=== PATIENT | female | born 1995 | race African-American/Black ===

== ENCOUNTER 2017-07-24 02:36 | Emergency (ER) | payer SELFPAY ==
[~2017-07-24] VITALS: Ht 152.4 cm; Wt 61.5 kg
[2017-07-24 02:50] VITALS: Ht 152.4 cm; Wt 61.5 kg
[2017-07-24] MEDS ORDERED: DIPHTH/TET/ACEL PERTUSS (ADULT) 0.5 ML VIAL IM* ONE (04:00)
--- NOTE | 2017-07-24 04:02 | ERD ---
ER Documentation Chief Complaint Date/Time DATE: 07/24/17 TIME: 03:58 Chief Complaint left 4th toe laceration HPI A 2-year-old female complaining of laceration to left fourth toe. 4 hours ago patient had glass near fall on her toe sustained laceration. Patient does not recall last tetanus shot. Patient clean site at home and applied bandage. Denies numbness or tingling. Is able to move toes without difficulty. Denies medical problems. NKDA. Surgical history ACL repair of her left knee. Social history smokes occasionally. ROS All systems reviewed and are negative except as per history of present illness. Medications Home Meds Reported Medications [None] No Conflict Check 06/25/11 Allergies Allergies: Coded Allergies: No Known Allergies (Verified Allergy, Unknown, 06/25/11) PMhx/Soc History of Surgery: No Anesthesia Reaction: No Hx Neurological Disorder: No Hx Respiratory Disorders: No Hx Cardiac Disorders: No Hx Psychiatric Problems: No Hx Miscellaneous Medical Probl: No Hx Alcohol Use: No Hx Substance Use: No Hx Tobacco Use: No Physical Exam Vitals Vital Signs Date Time Temp Pulse Resp B/P Pulse Ox O2 Delivery O2 Flow Rate FiO2 07/24/17 02:50 97.3 77 20 111/70 100 Physical Exam GENERAL: The patient is well-appearing, well-nourished, in no acute distress CHEST: Clear to auscultation bilaterally. There are no rales, wheezes or rhonchi. HEART: Regular rate and rhythm. No murmurs, clicks, rubs or gallops. No S3 or S4. EXTREMITIES: Equal pulses bilaterally. There is no peripheral clubbing, cyanosis or edema. No focal swelling or erythema. Full range of motion. Grossly neurovascularly intact. SKIN: 2 cm flap laceration to dorsal left fourth toe. Results 24 hrs Current Medications Medications (Trade) Dose Ordered Sig/Thad Route PRN Reason Start Time Stop Time Status Last Admin Dose Admin Diphtheria/ Tetanus/Acell Pertussis (Adacel) 0.5 ml ONCE ONCE IM* 07/24/17 04:00 07/24/17 04:01 Procedures/MDM ER Course: TDap given in ED Site cleaned with NS. Dermabond applied. Patient tolerated procedure well Bandage applied over dermabond MDM: 22-year-old female complaining of laceration to left fourth toe. I have low suspicion for tendon or ligament injury. I have low suspicion for retained foreign body. I have low suspicion for vascular injury. Patient's laceration is a flap laceration and is superficial. Patient is told to follow-up with primary care doctor within 1-2 days for close evaluation. Patient is told symptoms change or worsen to return to the ER. All questions answered at discharge. Departure Diagnosis: Primary Impression: Laceration of toe Condition: Stable Patient Instructions: Laceration, Extremity (Skin Glue) Additional Instructions: FOLLOW UP WITH YOUR PRIMARY CARE PHYSICIAN TOMORROW.Return to this facility if you are not improving as expected. GELY VERAS PA-C Jul 24, 2017 04:01
== END 2017-07-24 04:14 | disposition home or self-care (01) ==
LOC: FTE 02:36
DX: S91.115A Laceration without foreign body of left lesser toe(s) without damage to nail, initial encounter (principal); F17.210 Nicotine dependence, cigarettes, uncomplicated; W25.XXXA Contact with sharp glass, initial encounter; Y92.9 Unspecified place or not applicable; Z23 Encounter for immunization
CPT/HCPCS: 90471; 90715